=== PATIENT | male | born 1970 | race Caucasian/White ===

== ENCOUNTER 2020-06-01 16:49 | Emergency (ER) | payer OTHER, SELFPAY ==
--- NOTE | 2020-06-01 | ECG_ITS ---
Test Reason : MEDICAL CLEARANCE Blood Pressure : / mmHG Vent. Rate : 062 BPM Atrial Rate : 062 BPM P-R Int : 160 ms QRS Dur : 104 ms QT Int : 406 ms P-R-T Axes : 000 089 060 degrees QTc Int : 412 ms Normal sinus rhythm with sinus arrhythmia Nonspecific ST abnormality Inferior leads Abnormal ECG No previous ECGs available Referred By: Jordon Caballero Electronically Signed By:MP RICK MD
--- NOTE | 2020-06-01 16:59 | PC.NURSE ---
Pt arrived w/ EMS. Pt cooperative w/ changeover, walks w/ cane, states he is unable to ambulate without.
[2020-06-01 17:30] VITALS: BP 122/81; PULSE 82; RESP 16; RESP 20; TEMP 36.1; O2SAT 96; BMI 27.1
[2020-06-01 18:00] VITALS: RESP 18
--- NOTE | 2020-06-01 18:14 | PC.NURSE ---
labs drawn and sent
[2020-06-01 18:20] LABS: Basophils Absolute Auto 0.1 X10*3/uL (0.0-0.2); Basophils Percent Auto 0.5 % (0-2); Eosinophils Absolute Auto 0.6 X10*3/uL (0.0-0.4); Eosinophils Percent Auto 6.3 % (0-4); Hematocrit 46.7 % (42-52); Hemoglobin 15.7 g/dl (14.0-18.0); Imm Gran Abs Auto 0.03 X10*3/uL (0.00-0.03); Imm Gran Pct Auto 0.3 % (0.0-0.4); Lymphocytes Absolute Auto 2.9 X10*3/uL (1.2-4.9); Lymphocytes Percent Auto 31.4 % (20-40); MANUAL DIFF FLAG NO; Mean Corpuscular HGB Conc 33.6 g/dl (31.0-36.0); Mean Corpuscular Hemoglobin 29.2 pg (27.0-33.0); Mean Platelet Volume 9.6 fL (9.4-12.4); Monocytes Absolute Auto 0.8 X10*3/uL (0.1-1.2); Monocytes Percent Auto 8.3 % (2-11); Neutrophils Absolute Auto 4.9 X10*3/uL (2.0-8.3); Neutrophils Percent Auto 53.2 % (45-73); Platelet Count 284 X10*3/uL (160-400); Red Blood Count 5.37 X10*6/uL (4.60-5.80); Red Cell Distribution Width 13.1 % (11.0-16.0); White Blood Count 9.2 X10*3/uL (4.8-10.8)
[2020-06-01 18:30] LABS: Amphetamine Screen Urine Not Detected (Not Detect); Barbiturates, Urine Not Detected (Not Detect); Benzodiazepines Screen Urine Not Detected (Not Detect); Cannabinoid Screen Urine POSITIVE (Not Detect); Cocaine Screen Urine Not Detected (Not Detect); Opiate Screen Urine Not Detected (Not Detect); Phencyclidine Screen Urine Not Detected (Not Detect)
[2020-06-01 18:45] LABS: Ethanol 107 mg/dL
[2020-06-01 18:48] LABS: Alanine Aminotransferase 14 U/L (0-40); Albumin Level 5.1 g/dL (3.5-5.0); Alkaline Phosphatase 60 U/L (39-117); Aspartate Amino Transferase 11 U/L (5-37); Bilirubin Direct 0.2 mg/dL (0.0-0.5); Bilirubin Total 0.5 mg/dL (0.0-1.0); Total Protein 7.7 g/dL (6.5-8.0)
[2020-06-01] MEDS: Lidocaine 4 % Patch ADH..PATCH 1 PATCH TRANSDERMA (19:01)
--- NOTE | 2020-06-01 19:24 | PC.NURSE ---
Patient in his room, lying, appears resting, no distress except back pain secondary to spinal fusion he had 4-5 years ago, received lidocaine patch earlier, N faxed/called/spoke with Amina/confirmed receipt of referral, will continue to monitor.
[2020-06-01 19:33] LABS: Acetaminophen LAB < 1 mcg/mL (<30); Alanine Aminotransferase 14 U/L (0-40); Albumin Level 5.1 g/dL (3.5-5.0); Alkaline Phosphatase 60 U/L (39-117); Anion Gap 19 (12-20); Aspartate Amino Transferase 12 U/L (5-37); Bilirubin Total 0.5 mg/dL (0.0-1.0); Blood Urea Nitrogen 10 mg/dL (9-16); Carbon Dioxide 19 mmol/L (22-29); Chloride 105 mmol/L (96-108); Estimated Glomerular Filt Rate > 60; Glucose Random 66 mg/dL (60-115); Potassium 3.5 mmol/l (3.3-5.1); Salicylate < 5.0 mg/dL (15-30); Sodium 139 mmol/L (135-145); Total Protein 7.7 g/dL (6.5-8.0)
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
[2020-06-01 22:13] VITALS: BP 103/73; PULSE 100; RESP 20; TEMP 36.3; O2SAT 95
[2020-06-01] MEDS: LORazepam 1 MG TABLET 2 MG PO (22:16)
--- NOTE | 2020-06-01 22:19 | PC.NURSE ---
Patient out of room for bathroom use, vomited times one in bathroom, moderate amount, Vitals WNL, ambulates safely with cane, patient struggling from pain, apparent from facial grimacing, refused to take pain medication at this time as patient use medical marijuana for pain management at home. Provider notified/ordered Ativan 2 mg and Zofran 4 mg, administered as ordered/patient compliant. Currently in his bed, lying on right side, will continue to monitor.
--- NOTE | 2020-06-01 23:44 | PC.NURSE ---
[facility]N with patient, patient engaged,
[2020-06-02] VITALS (9 sets, daily range): BP systolic 111–115; BP diastolic 60–86; PULSE 68–86; RESP 16–20; TEMP 36.6–36.9; O2SAT 95–96
--- NOTE | 2020-06-02 01:32 | PC.NURSE ---
Patient in bed appears sleeping, [facility] updated patient's disposition, patient is on section 12 in-patient bed search. No distress observed/reported, will continue to monitor.
--- NOTE | 2020-06-02 06:48 | PC.NURSE ---
Patient requested to allow him to use his own spinal cord stimulator for his back pain, provider notified/approved/patient used the stimulator and back to bed. Will continue to monitor.
--- NOTE | 2020-06-02 07:15 | PC.NURSE ---
Report received from SHARONDA Werner- pt awake briefly, ambulated to bathroom, now resting in room, no concerns reported.
[2020-06-02] MEDS: oxyCODONE HCl Immed Release 5 MG TABLET PO (08:35)
[2020-06-02] MEDS: Lidocaine 4 % Patch ADH..PATCH 1 PATCH TRANSDERMA (08:35)
[2020-06-02] MEDS: Cyclobenzaprine HCl 10 MG TABLET PO ×2 (10:01→20:11)
--- NOTE | 2020-06-02 10:12 | PC.NURSE ---
Pt reports little relief from oxycodone given- offered flexeril, accepted- states Ibuyprofen is not effective. Pt affect slightly brighter. Doing word puzzles at this time.
[2020-06-02 10:24] LABS: COVID-19 Test Negative (Negative)
[2020-06-02] MEDS: Ketorolac Tromethamine 60 MG/2 ML VIAL IM (12:56)
--- NOTE | 2020-06-02 17:15 | PC.NURSE ---
Pt reports some effect from the toredol given, states he was able to rest a 'a couple of hours.'
--- NOTE | 2020-06-02 19:17 | PC.NURSE ---
Patient in his chair, doing crossword, denied distress at this time, will continue to monitor.
[2020-06-02] MEDS: Ibuprofen 800 MG TABLET PO (20:11)
--- NOTE | 2020-06-02 20:35 | PC.NURSE ---
Patient reported back pain 01/18, PRN ibuprofen and flexril administered as ordered/pending effect, currently in his bed lying on right side, resting quietly, will continue to monitor.
[2020-06-03] MEDS: Cyclobenzaprine HCl 10 MG TABLET PO (05:11)
[2020-06-03] MEDS: Ibuprofen 800 MG TABLET PO (05:12)
[2020-06-03 06:43] VITALS: BP 110/63; PULSE 52; RESP 16; TEMP 36.2; O2SAT 93
[2020-06-03] MEDS: Ketorolac Tromethamine 60 MG/2 ML VIAL IM (09:12)
[2020-06-03] MEDS: Lidocaine 4 % Patch ADH..PATCH 1 PATCH TRANSDERMA (09:12)
[2020-06-03 09:24] VITALS: BP 136/71; PULSE 57; RESP 18; TEMP 36.8; O2SAT 96
== END 2020-06-03 12:51 | disposition home or self-care (01) ==
PROVIDERS: Nurse Practitioner Family; Nurse Practitioner Primary Care; Emergency Provider Internal Medicine; PCP Internal Medicine
DX: F12.90 Cannabis use, unspecified, uncomplicated (principal); F33.1 Major depressive disorder, recurrent, moderate; R45.851 Suicidal ideations; F10.229 Alcohol dependence with intoxication, unspecified; Y90.5 Blood alcohol level of 100-119 mg/100 ml; F17.200 Nicotine dependence, unspecified, uncomplicated; Z20.828 Contact with and (suspected) exposure to other viral communicable diseases; Z71.6 Tobacco abuse counseling; Z71.41 Alcohol abuse counseling and surveillance of alcoholic; Z79.899 Other long term (current) drug therapy
CPT/HCPCS: 36415; 80053; 80076; 80307; 80320; 82248; 85025; 87635; 93005; 96372; 99285; G0480; J1885